=== PATIENT | male | born 1990 | race Caucasian/White ===

== ENCOUNTER 2017-06-08 18:21 | Emergency (ER) | payer OTHER ==
[~2017-06-08] VITALS: Ht 182.9 cm; Wt 105.0 kg
[2017-06-08] MEDS ORDERED: IBUPROFEN 600MG TABLET PO ONE (18:45)
[2017-06-08 20:38] VITALS: BP 129/79
== END 2017-06-08 20:43 | disposition home or self-care (01) ==
LOC: ER 18:21
DX: Z02.89 Encounter for other administrative examinations (principal); S50.02XA Contusion of left elbow, initial encounter; F17.210 Nicotine dependence, cigarettes, uncomplicated; F12.10 Cannabis abuse, uncomplicated; V49.9XXA Car occupant (driver) (passenger) injured in unspecified traffic accident, initial encounter; Y93.89 Activity, other specified; Y92.89 Other specified places as the place of occurrence of the external cause
CPT/HCPCS: 73080; 99284